=== PATIENT | female | born 1995 | race Two or more races ===

== ENCOUNTER 2017-12-04 11:58 | Emergency (ER) | payer OTHER ==
[~2017-12-04] VITALS: Ht 160 cm; Wt 63.5 kg
== END 2017-12-04 14:53 | disposition home or self-care (01) ==
LOC: ER 11:58
DX: K52.9 Noninfective gastroenteritis and colitis, unspecified (principal)

== ENCOUNTER 2020-04-01 15:15 | Inpatient (IN) | payer OTHER ==
[~2020-04-01] VITALS: Ht 160 cm; Wt 3.2 kg
[2020-04-15] MEDS ORDERED: PRENATAL CAPLE1 EAC1 (07:13)
[2020-04-15] MEDS ORDERED: FOLIC ACID20 MG (07:13)
== END 2020-04-18 14:58 | disposition home or self-care (01) | DRG 788 ==
LOC: O/R 04-15 06:31 → LDR 04-15 06:31 → O/R 04-15 16:44 → OB/GYN 04-15 17:48 → LDR 04-16 15:15 → OB/GYN 04-18 14:58
PROVIDERS: ADMIT Obstetrics & Gynecology; ATTEND Obstetrics & Gynecology
PROC: 3E033VJ Introduction of Other Hormone into Peripheral Vein, Percutaneous Approach (ICD-10-PCS; 2020-04-15)
PROC: 4A1HXFZ Monitoring of Products of Conception, Cardiac Rhythm, External Approach (ICD-10-PCS; 2020-04-15)
PROC: 10D00Z1 Extraction of Products of Conception, Low, Open Approach (ICD-10-PCS; principal; 2020-04-15 15:00)
DX: O61.0 Failed medical induction of labor (principal); O33.8 Maternal care for disproportion of other origin; Z3A.39 39 weeks gestation of pregnancy; Z37.0 Single live birth; Z20.822 Contact with and (suspected) exposure to COVID-19